=== PATIENT | female | born 1985 | race Caucasian/White ===

== ENCOUNTER 2017-03-28 22:44 | Emergency (ER) | payer SELFPAY ==
[~2017-03-28] VITALS: Ht 154.9 cm; Wt 66.9 kg
[2017-03-28 22:56] VITALS: BP 117/76
== END 2017-03-29 01:33 | disposition home or self-care (01) ==
LOC: ED 23:59
DX: N63 Unspecified lump in breast (principal); N64.4 Mastodynia
CPT/HCPCS: 76641; 99284

== ENCOUNTER → 2017-04-11 | Outpatient (CLI) | payer SELFPAY | END | disposition home or self-care (01) | LOC: CFH 14:57 | PROVIDERS: ATTEND Obstetrics & Gynecology | DX: N63 Unspecified lump in breast (principal) | CPT/HCPCS: G0204 ==